=== PATIENT | female | born 1995 | race Caucasian/White ===

== ENCOUNTER 2018-06-10 19:40 | Emergency (ER) | payer OTHER ==
[~2018-06-10] VITALS: Ht 162.6 cm; Wt 54.4 kg
[2018-06-10] MEDS ORDERED: IBUPROFEN 600600 M1 PO (20:31)
[2018-06-10 20:48] VITALS: BP 145/67
== END 2018-06-10 20:50 | disposition home or self-care (01) ==
LOC: M.ERS 19:40
DX: M25.512 Pain in left shoulder (principal); Z88.6 Allergy status to analgesic agent

== ENCOUNTER 2019-10-15 16:11 | Emergency (ER) | payer OTHER ==
[~2019-10-15] VITALS: Ht 165.1 cm; Wt 59.0 kg
[~2019-10-15 16:11] MED LIST: IBUPROFEN 600600 M1 PO
[2019-10-15] MEDS ORDERED: TYLENOL WITH CO1 TA1 PO (16:46)
[2019-10-15] MEDS ORDERED: AMOXICILLIN 50500 MG PO (17:10)
[2019-10-15 17:13] VITALS: BP 122/76
== END 2019-10-15 17:13 | disposition home or self-care (01) ==
LOC: M.ERS 16:11
DX: J02.9 Acute pharyngitis, unspecified (principal); M79.18 Myalgia, other site; Z88.5 Allergy status to narcotic agent